=== PATIENT | male | born 1990 | race Caucasian/White ===

== ENCOUNTER 2019-08-17 19:07 | Inpatient (IN) | payer OTHER ==
[2019-08-17 21:29] VITALS: BMI 19.2
--- NOTE | 2019-08-17 22:41 | HP ---
COWS - Scale Resting Pulse: 1= [place] 81-100 Sweatin=Flushed/Facial Moisture Restless Observation: 1= Difficult to Sit Still Pupil Size: 2= Moderately Dilated (Pupils = 5 mm) Bone or Joint Aches: 2= Severe Diffuse Aches Runny Nose/ Eye Tearin= Nasal Congestion GI Upset > 30mins: 2= Nausea/Diarrhea Tremor Observation: 4= Gross Tremor/Twitching Yawning Observation: 0= None Anxiety or Irritability: 2=Irritable/Anxious Goose Flesh Skin: 0=Smooth Skin COWS Score: 17 CIWA Score Nausea/Vomitin Muscle Tremors: 4-Moderate,w/Arms Extend Anxiety: 3 Agitation: 1-Slight > Activity Paroxysmal Sweats: 3 (Increased facial moisture) Orientation: 0-Oriented Tacttile Disturbances: 0-None Auditory Disturbances: 0-None Visual Disturbances: 0-None Headache: 0-None Present CIWA-Ar Total Score: 14 - Admission Criteria OASAS Guidelines: Admission for Medically Managed Detox: Requires at least one of the followin. CIWA greater than 12 2. Seizures within the past 24 hours 3. Delirium tremens within the past 24 hours 4. Hallucinations within the past 24 hours 5. Acute intervention needed for co occurring medical disorder 6. Acute intervention needed for co occurring psychiatric disorder 7. Severe withdrawal that cannot be handled at a lower level of care (continued vomiting, continued diarrhea, abnormal vital signs) requiring intravenous medication and/or fluids 8. Patient presents the following: CIWA greater than 12 Admission Criteria Met: Admission criteria met Admission ROS [facility] Chief Complaint: Here for alcohol, Xanax, and heroin detox. Allergies/Adverse Reactions: Allergies Allergy/AdvReac Type Severity Reaction Status Date / Time No Known Allergies Allergy Verified 08/17/19 21:13 History of Present Illness: 29 yo first presentation to [facility] w/ alcohol, Xanax, and opioid use disorder. Was seen at [facility] and brought to [facility], after stabilization. Denies seizures or blackouts. Hx: Multiple OD's. Last 2 weeks ago. Alcohol use began at age 18. Currently drinks 1/2 pt vodka - every other day. Last drank 4 pm 08/16. Heroin use began at age 22. Currently using 1 bundle/day x 2 months. Off and on x 3-4 years. IVDU. Denies sharing needles or works. On Suboxone for 1 year. Last took this a.m. and it precipitated withdrawal. Went to hospital this am and was given IV fluids, Valium, and zofran and then brought here. No Narcan kit at home. Reviewed Narcan use and encouraged to accept. Patient informed he would be restarted on Suboxone and is agreement. States will f/u w/ current prescriber. Xanax use began at age 22. Currently uses 2-3 sticks/day. Last used 08/16 about 4 pm. Cocaine use began at age 22. Currently speedballs 1/2 -1 gm IV. Nicotine use began at age 15. Currently smokes 1/2 PPD. PMHx: PPD +; Hx BCG vaccination in [place]. MHHx: PTSD; Depression; (On meds). Insomnia only when going thorough detox. Last saw a MH Provider about 1.5 mths ago. Denies thoughts of harming self or others. SHx: Homeless. Unemployed. Denies legal issues. Patient Name: Deneen Morales Date: 1990 Address: [address] [place] [address] Sex: Male Rx Written Rx Dispensed Drug Quantity Days Supply Prescriber Name 08/14/2019 08/14/2019 buprenorphine-naloxone 8-2 mg sl film 21 7 Jami Jackson 08/01/2019 08/02/2019 buprenorphine-naloxone 8-2 mg sl film 36 12 BrieKodia 07/31/2019 07/31/2019 buprenorphine-naloxone 8-2 mg sl film 9 3 Sonia Landers 07/23/2019 07/23/2019 buprenorphine-naloxone 8-2 mg sl film 24 8 Lidia Lowe E 07/16/2019 07/16/2019 buprenorphine-naloxone 8-2 mg sl film 21 7 Lidia Lowe E 07/09/2019 07/09/2019 buprenorphine-naloxone 8-2 mg sl film 21 7 Lidia Lowe E 07/02/2019 07/02/2019 buprenorphine-naloxone 8-2 mg sl film 12 6 Lidia Lowe E Patient Name: Deneen Morales Date: 1990 Address: [place] [address] Sex: Male Rx Written Rx Dispensed Drug Quantity Days Supply Prescriber Name 06/21/2019 06/21/2019 buprenorphine-naloxone 8-2 mg sl film 28 14 Za Cleveland JAVA SUPPORT ENGINEER 06/14/2019 06/14/2019 buprenorphine-naloxone 8-2 mg sl film 16 8 Freddie Avitia 06/07/2019 06/07/2019 buprenorphine-naloxone 4-1 mg sl film 24 8 Freddie Avitia Patient Name: Deneen Morales Date: 1990 Address: [place] [address] Sex: Male Rx Written Rx Dispensed Drug Quantity Days Supply Prescriber Name 05/28/2019 05/28/2019 buprenorphine-naloxone 12-3 mg sl film 25 25 Larry Pollock 05/28/2019 05/28/2019 buprenorphine-naloxone 8-2 mg sl film 25 25 Larry Pollock Patient Name: Deneen Morales Date: 1990 Address: [place] [address] Sex: Male Rx Written Rx Dispensed Drug Quantity Days Supply Prescriber Name 04/23/2019 04/23/2019 buprenorphine-naloxone 8-2 mg sl film 90 30 Teofilo Huerta 03/29/2019 03/29/2019 buprenorphine-naloxone 8-2 mg sl film 90 30 Teofilo Huerta 03/20/2019 03/20/2019 buprenorphine-naloxone 8-2 mg sl film 21 7 Teofilo Huerta 02/02/2019 02/02/2019 buprenorphine-naloxone 8-2 mg sl film 90 30 Teofilo Huerta 01/16/2019 01/16/2019 buprenorphine-naloxone 4-1 mg sl film 30 30 Teofilo Huerta 01/08/2019 01/08/2019 buprenorphine-naloxone 8-2 mg sl film 60 30 Teofilo Huerta Patient Name: Deneen Morales Date: 1990 Address: [place] [address] Sex: Male Rx Written Rx Dispensed Drug Quantity Days Supply Prescriber Name 12/13/2018 12/13/2018 buprenorphine-naloxone 8-2 mg sl film 60 30 Yaya Anthony MD Patient Name: Deneen Morales Date: 1990 Address: [place] [address] Sex: Male Rx Written Rx Dispensed Drug Quantity Days Supply Prescriber Name 10/31/2018 11/02/2018 suboxone 8 mg-2 mg sl film 60 30 Anant Jordan MD 10/26/2018 10/30/2018 suboxone 8 mg-2 mg sl film 12 4 Heather Wang MD Patient Name: Deneen Morales Date: 1990 Address: [address] [id number] Sex: Male Rx Written Rx Dispensed Drug Quantity Days Supply Prescriber Name 10/12/2018 10/12/2018 buprenorphine 8 mg tablet sl 42 14 Heather Wang MD 10/06/2018 10/06/2018 buprenorphine 8 mg tablet sl 15 5 Heather Wang MD 09/22/2018 09/22/2018 buprenorphine 8 mg tablet sl 42 14 Heather Wang MD 09/08/2018 09/09/2018 buprenorphine 8 mg tablet sl 42 14 Heather Wang MD 09/01/2018 09/01/2018 buprenorphine 8 mg tablet sl 28 14 Heather Wang MD Exam Limitations: No Limitations - Ebola screening Have you traveled outside of the country in the last 21 days: No (N) Have you had contact with anyone from an Ebola affected area: No Have you been sick,other than usual withdrawal symptoms: No Do you have a fever: No - Review of Systems Constitutional: Chills, Diaphoresis, Changes in sleep (Only when detoxing), Weight Stable EENT: reports: Nose Congestion Respiratory: reports: No Symptoms reported Cardiac: reports: No Symptoms Reported GI: reports: Nausea, Vomiting (while in ED), Abdominal cramping : reports: No Symptoms Reported (Denies burnig or pain w/ urination.) Musculoskeletal: reports: Back Pain (Achy pain r/t withdrawal), Other (Achy pain all over r/t withdrawal) Integumentary: reports: No Symptoms Reported Neuro: reports: Tremors Endocrine: reports: No Symptoms Reported Hematology: reports: No Symptoms Reported Psychiatric: reports: Judgement Intact, Mood/Affect Appropiate, Orientated x3, Agitated, Anxious, Depressed (Denies thoughts of harming self or others.) Patient History - PPD History Previous Implant?: Yes Documented Results: Positive w/o proof (Hx BCG vaccination.) Implanted On Prior R Admission?: No PPD to be Administered?: No - Smoking Cessation Smoking history: Current every day smoker Have you smoked in the past 12 months: Yes Aproximately how many cigarettes per day: 10 Hx Chewing Tobacco Use: No Initiated information on smoking cessation: Yes 'Breaking Loose' booklet given: 08/17/19 - Substance & Tx. History Hx Alcohol Use: Yes Hx Substance Use: Yes Substance Use Type: Alcohol, Cocaine, Heroin, Tranquilizers (Xanax) Hx Substance Use Treatment: Yes (detox, rehab, currently on Suboxone) - Substances abused Heroin Substance route: Injection Frequency: Daily Amount used: 15 bags Age of first use: 22 Date of last use: 08/16/19 Alprazolam (Xanax) Substance route: Oral Frequency: Daily Amount used: 3 mg Age of first use: Date of last use: 08/16/19 Alcohol Substance route: Oral Frequency: 3-6 times per week Amount used: half of vodka Age of first use: Date of last use: 08/16/19 Admission Physical Exam S - Vital Signs Vital Signs: Vital Signs - 24 hr 08/17/19 21:12 Temperature 96.2 F L Pulse Rate 84 Respiratory 16 Rate Blood Pressure 110/62 - Physical General Appearance: Yes: Nourished, Moderate Distress, Thin, Tremorous, Sweating (Increased facial moisture), Anxious HEENTM: Yes: EOMI, Hearing grossly Normal, Normocephalic, Normal Voice, ARNOLD ( Pupils = 5 mm), Pharynx Normal, Nasal Congestion Respiratory: Yes: Lungs Clear (Pulse Ox = 99 %), Normal Breath Sounds, No Respiratory Distress Neck: Yes: No masses,lesions,Nodules, Supple Breast: Yes: Breast Exam Deferred Cardiology: Yes: Regular Rhythm, S1, S2, Bradycardia (HR: 58) Abdominal: Yes: Non Tender, Flat, Soft, Increased Bowel Sounds Genitourinary: Yes: Other (Urine color of orange juice.) Back: Yes: Normal Inspection Musculoskeletal: Yes: full range of Motion, Gait Steady Extremities: Yes: Normal Capillary Refill (Peripheral pulses +), Tremors (Gross) Neurological: Yes: armature winder repairer II-XII NML intact, Fully Oriented, Alert, Motor Strength 5/5, Normal Mood/Affect Integumentary: Yes: Normal Color, Warm, Diaphoresis (Increased facial moisture) , Track Shirley (Track shirley oswaldo antecubitals w/o increased warmth or erythema) Lymphatic: Yes: Within Normal Limits - Diagnostic (1) Alcohol dependence with withdrawal, uncomplicated Current Visit: Yes Status: Acute (2) Opioid dependence with withdrawal Current Visit: Yes Status: Acute Comment: IVDU (3) Opioid dependence on agonist therapy Current Visit: Yes Status: Chronic Comment: On Suboxone (4) Sedative, hypnotic or anxiolytic dependence with withdrawal, uncomplicated Current Visit: Yes Status: Acute (5) Cocaine dependence, uncomplicated Current Visit: Yes Status: Chronic (6) Nicotine dependence, unspecified, uncomplicated Current Visit: Yes Status: Chronic Qualifiers: Nicotine product type: cigarettes Qualified Code(s): F17.210 - Nicotine dependence, cigarettes, uncomplicated (7) History of positive PPD Current Visit: Yes Status: Chronic Comment: BCG vaccination while in [facility] Cleared for Admission [facility] - Detox or Rehab [facility] Level of Care: Medically Managed Detox Regimen/Protocol: Not Applicable (ATIVAN DETOX) Claeared for Rehab Admission: No Breathalyzer - Breathalyzer Breathalyzer: 0 Urine Drug Screen - Test Device Lot number: [id number] Expiration date: 04/18/21 - Control Is test valid?: Yes - Results Drug screen NEGATIVE: Yes Urine drug screen results: ALICIA-Cocaine, MOP-Opiates, BZO-Benzodiazepines, BUP- Suboxone Inpatient Rehab Admission - Rehab Decision to Admit Inpatient rehab admission?: No
[2019-08-17] MEDS ORDERED: MELATONIN 5 MG TABLETS PO PRN (23:30)
[2019-08-17] MEDS ORDERED: MENTHOL/PHENOL 1 EACH UD MM PRN (23:30)
[2019-08-17] MEDS ORDERED: MAGNESIUM CITRATE 300 ML BOTTLE PO PRN (23:30)
[2019-08-17] MEDS ORDERED: MAG HYDROX/AL HYDROX/SIMETH 30 ML UNIT-DOSE CUP PO PRN (23:30)
[2019-08-17] MEDS ORDERED: ACETAMINOPHEN 325 MG TABLET (FP) PO PRN ×2 (23:30)
[2019-08-17] MEDS ORDERED: NICOTINE POLACRILEX 2 MG GUM BUC PRN (23:30)
[2019-08-17] MEDS ORDERED: MAGNESIUM HYDROX 2400MG/30ML ORAL SUSPENSION 30 ML CUP PO PRN (23:30)
[2019-08-17] MEDS ORDERED: BISMUTH SUBSALICYLATE 524 MG/30 ML UD PO PRN (23:30)
[2019-08-17] MEDS ORDERED: PROCHLORPERAZINE MALEATE 5 MG TABLET PO PRN (23:35)
[2019-08-17] MEDS ORDERED: GABAPENTIN 100 MG CAPSULE (FP) PO ONE (23:36)
[2019-08-18] MEDS ORDERED: LORazepam 2 MG TABLET PO ONE (00:01)
[2019-08-18] MEDS ORDERED: LORazepam 1 MG TABLET PO PRN (00:01)
[2019-08-18] MEDS: BUPRENORPHINE/NALOXONE 8 MG/2 MG FILM PACKET SL SCH ×4 (00:56→21:59)
[2019-08-18] MEDS: LORazepam 2 MG TABLET PO SCH ×4 (05:03→22:00)
[2019-08-18] MEDS: PRENATAL VITAMINS W/ FOLIC ACID TABLET (FP) PO SCH (10:06)
[2019-08-18] MEDS: NICOTINE 14 MG/24 HOURS TOPICAL PATCH TD SCH (10:06)
[2019-08-18 10:49] LABS: ALBUMIN 3.6 g/dl (3.4-5.0); BILIRUBIN,TOTAL 0.1 mg/dL (0.2-1); BLOOD UREA NITROGEN 10.8 mg/dL (7-18); CALCIUM 8.7 mg/dL (8.5-10.1); CREATININE 0.7 mg/dL (0.55-1.3); POTASSIUM 3.8 mmol/L (3.5-5.1); TOT PROT 6.8 g/dl (6.4-8.2)
[2019-08-18 11:04] LABS: HEMATOCRIT 38.9 % (35.4-49); HEMOGLOBIN 13.3 GM/dL (11.7-16.9); MCH 30.3 pg (25.7-33.7); MCHC 34.1 g/dl (32.0-35.9); MEAN CELL VOLUME 88.6 fl (80-96); MEAN PLT VOLUME 10.1 fl (7.5-11.1); PLATELET COUNT 198 K/MM3 (134-434); RBC 4.39 M/mm3 (4.00-5.60); WHITE BLOOD COUNT 5.4 K/mm3 (4.0-10.0)
--- NOTE | 2019-08-18 12:00 | PN ---
S CIWA - CIWA Score Nausea/Vomitin-No Nausea/No Vomiting Muscle Tremors: None Anxiety: 3 Agitation: 0-Normal Activity Paroxysmal Sweats: 3 Orientation: 0-Oriented Tacttile Disturbances: 0-None Auditory Disturbances: 0-None Visual Disturbances: 0-None Headache: 2-Mild CIWA-Ar Total Score: 8 S COWS - Scale Resting Pulse: 0= [place] 80 or Below Sweatin= Beads of Sweat on Face Restless Observation: 1= Difficult to Sit Still Pupil Size: 0= Normal to Room Light Bone or Joint Aches: 2= Severe Diffuse Aches Runny Nose/ Eye Tearin= None GI Upset > 30mins: 0= None Tremor Observation of Outstretched Hands: 0= None Yawning Observation: 1= 1-2x During Session Anxiety or Irritability: 2=Irritable/Anxious Goose Flesh Skin: 0=Smooth Skin COWS Score: 9 S Progress Note (SOAP) Subjective: c/o muscle aches, headache, anxiety, and sweats. Objective: 08/18/19 11:59 Vital Signs 08/18/19 08/18/19 06:35 09:23 Temperature 97.3 F L 97.1 F L Pulse Rate 72 63 Respiratory 16 18 Rate Blood Pressure 117/75 107/70 Laboratory Last Values WBC 5.4 K/mm3 (4.0-10.0) 08/18/19 07:50 RBC 4.39 M/mm3 (4.00-5.60) 08/18/19 07:50 Hgb 13.3 GM/dL (11.7-16.9) 08/18/19 07:50 Hct 38.9 % (35.4-49) 08/18/19 07:50 MCV 88.6 fl (80-96) 08/18/19 07:50 MCH 30.3 pg (25.7-33.7) 08/18/19 07:50 MCHC 34.1 g/dl (32.0-35.9) 08/18/19 07:50 RDW 13.0 % (11.9-15.9) 08/18/19 07:50 Plt Count 198 K/MM3 (134-434) 08/18/19 07:50 MPV 10.1 fl (7.5-11.1) 08/18/19 07:50 Sodium 141 mmol/L (136-145) 08/18/19 07:50 Potassium 3.8 mmol/L (3.5-5.1) 08/18/19 07:50 Chloride 108 mmol/L (98-107) H 08/18/19 07:50 Carbon Dioxide 29 mmol/L (21-32) 08/18/19 07:50 Anion Gap 4 MMOL/L (8-16) L 08/18/19 07:50 BUN 10.8 mg/dL (7-18) 08/18/19 07:50 Creatinine 0.7 mg/dL (0.55-1.3) 08/18/19 07:50 Est GFR (CKD-EPI)AfAm 148.85 08/18/19 07:50 Est GFR (CKD-EPI)NonAf 128.43 08/18/19 07:50 Random Glucose 87 mg/dL (74-106) 08/18/19 07:50 Calcium 8.7 mg/dL (8.5-10.1) 08/18/19 07:50 Total Bilirubin 0.1 mg/dL (0.2-1) L 08/18/19 07:50 AST 12 U/L (15-37) L 08/18/19 07:50 ALT 29 U/L (13-61) 08/18/19 07:50 Alkaline Phosphatase 113 U/L (45-117) 08/18/19 07:50 Total Protein 6.8 g/dl (6.4-8.2) 08/18/19 07:50 Albumin 3.6 g/dl (3.4-5.0) 08/18/19 07:50 Labs noted. Assessment: 08/18/19 11:59 AOX3, in no acute respiratory distress. Full ROM, ambulating in the unit. withdrawal symptoms. Plan: continue detox.
--- NOTE | 2019-08-18 13:05 | CONSULT ---
[facility] Psychiatric Consult - Data Date of interview: 08/18/19 Admission source: [facility] Identifying data: First admission to [facility] for this 29 y/o [place]born male , self-referred for detoxification (CUONG issues : heroin, cocaine, xanax, nicotine). Interviewed at [address] [place] [address]. Patient is , a father of one, homeless (senior care), unemployed and supported on welfare. Substance Abuse History: Discussed with the patient. Details in current [facility] report as follows : Smoking history: Current every day smoker. Have you smoked in the past 12 months: Yes. Aproximately how many cigarettes per day: 10. Hx Chewing Tobacco Use: No. Initiated information on smoking cessation: Yes. ' Breaking Loose' booklet given: 08/17/19. - Substance & Tx. History. Hx Alcohol Use: Yes. Hx Substance Use: Yes. Substance Use Type: Alcohol, Cocaine , Heroin, Tranquilizers (Xanax). Hx Substance Use Treatment: Yes (detox, rehab , currently on Suboxone). - Substances abused. Heroin. Substance route: Injection. Frequency: Daily. Amount used: 15 bags. Age of first use: 22. Date of last use: 08/16/19. Alprazolam (Xanax). Substance route: Oral. Frequency: Daily. Amount used: 3 mg. Age of first use: 22. Date of last use: 08/16/19. Alcohol. Substance route: Oral. Frequency: 3-6 times per week. Amount used: half of vodka. Age of first use: 20. Date of last use: 08/16/19 Medical History: Patient endorses good general health. Psychiatric History: Patient denies history of psychiatric hospitalizations. Mr Morales indicates current psychiatric care for MDD and PTSD (diagnosed by his primary care physician). Medicated with wellbutrin XL 150 mg/daily + prozac ( dose not recalled) + gabapentin 400 mg po tid (as per pharmacist at [facility]). Patient has no affiliation with psychiatrists. Gets his refills from his PMD. On suboxone maintenance. Denies history of suicide attempts. Physical/Sexual Abuse/Trauma History: Severe traumas : experienced the [place] war as a boy in [facility], several losses in his family, addictions, homelessness , divorce, loss of child custody, unemployment and financial difficulties. Additional Comment: Urine drug screen results: ALICIA-Cocaine, MOP-Opiates, BZO- Benzodiazepines, BUP-Suboxone. Noted. Mental Status Exam - Mental Status Exam Alert and Oriented to: Time, Place, Person Cognitive Function: Good Patient Appearance: Well Groomed (small stature, frail habitus) Mood: Nervous, Withdrawn Affect: Mood Congruent, Constricted Patient Behavior: Fatigued, Appropriate, Cooperative Speech Pattern: Clear, Appropriate Voice Loudness: Normal Thought Process: Goal Oriented Thought Disorder: Not Present Hallucinations: Denies Suicidal Ideation: Denies Homicidal Ideation: Denies Insight/Judgement: Poor Sleep: Fair Appetite: Good Gait/Station: Normal Psychiatric Findings - Problem List ([place] 1, 2,3) (1) Alcohol dependence with withdrawal, uncomplicated Current Visit: Yes Status: Acute (2) Opioid dependence with withdrawal Current Visit: Yes Status: Acute Comment: IVDU (3) Sedative, hypnotic or anxiolytic dependence with withdrawal, uncomplicated Current Visit: Yes Status: Acute (4) Opioid dependence on agonist therapy Current Visit: Yes Status: Chronic Comment: On Suboxone (5) Cocaine dependence, uncomplicated Current Visit: Yes Status: Chronic (6) Nicotine dependence, unspecified, uncomplicated Current Visit: Yes Status: Chronic Qualifiers: Nicotine product type: cigarettes Qualified Code(s): F17.210 - Nicotine dependence, cigarettes, uncomplicated (7) Substance induced mood disorder Current Visit: Yes Status: Chronic (8) History of posttraumatic stress disorder (PTSD) Current Visit: Yes Status: Chronic - Initial Treatment Plan Initial Treatment Plan: Psychoeducation. Sleep hygiene. Detoxification. Tool Grinder Operator External called [facility] at [phone] : spoke to pharmacist. Findings : refills for wellbutrin XL 150 mg/day (07/06/19) + gabapentin 400 mg/tid (). No prozac on file. Medications resumed as : gabapentin 200 mg po tid + wellbutrin XL 150 mg po daily. Side effects/benefits discussed with patient. Gave verbal consent to MD. [place].
[2019-08-18] MEDS ORDERED: GABAPENTIN 300 MG CAPSULE (FP) PO SCH (14:00)
[2019-08-18] MEDS: IBUPROFEN 400 MG TABLET (FP) PO PRN (16:27)
[2019-08-18] MEDS: THIAMINE HCL 100 MG TABLET (FP) PO SCH (22:00)
[2019-08-18] MEDS: GABAPENTIN 100 MG CAPSULE (FP) PO SCH (22:00)
[2019-08-19] MEDS: LORazepam 1 MG TABLET PO SCH ×2 (05:24→10:02)
[2019-08-19] MEDS: GABAPENTIN 100 MG CAPSULE (FP) PO SCH (05:24)
[2019-08-19] MEDS: BUPRENORPHINE/NALOXONE 8 MG/2 MG FILM PACKET SL SCH ×3 (05:24→21:49)
[2019-08-19] MEDS: PRENATAL VITAMINS W/ FOLIC ACID TABLET (FP) PO SCH (10:02)
[2019-08-19] MEDS: NICOTINE 14 MG/24 HOURS TOPICAL PATCH TD SCH (10:02)
[2019-08-19] MEDS: IBUPROFEN 400 MG TABLET (FP) PO PRN (10:04)
--- NOTE | 2019-08-19 12:28 | PN ---
S CIWA - CIWA Score Nausea/Vomitin-No Nausea/No Vomiting Muscle Tremors: 2 Anxiety: 2 Agitation: 2 Paroxysmal Sweats: No Perspiration Orientation: 0-Oriented Tacttile Disturbances: 0-None Auditory Disturbances: 0-None Visual Disturbances: 0-None Headache: 0-None Present CIWA-Ar Total Score: 6 BHS Progress Note (SOAP) Subjective: 29 years old male admitted on 08/17/19 for alcohol and benzo withdrawal sx management treated with ativan detox regimen patient prefers to take welbutrin at 9 am change welbutrin schedule from 10 am to 9 am patient requests neurontin 800 mg po tid "I have bottle of neurontine with me" bottle verified 400 mg po tid discontinue neurontin 200 mg po resume medication neurontin 400 mg po tid Objective: 08/19/19 12:30 Vital Signs Temperature 96 F L 08/19/19 09:16 Pulse Rate 77 08/19/19 09:16 Respiratory Rate 18 08/19/19 09:16 Blood Pressure 122/59 L 08/19/19 09:16 O2 Sat by Pulse Oximetry (%) Laboratory Last Values WBC 5.4 K/mm3 (4.0-10.0) 08/18/19 07:50 RBC 4.39 M/mm3 (4.00-5.60) 08/18/19 07:50 Hgb 13.3 GM/dL (11.7-16.9) 08/18/19 07:50 Hct 38.9 % (35.4-49) 08/18/19 07:50 MCV 88.6 fl (80-96) 08/18/19 07:50 MCH 30.3 pg (25.7-33.7) 08/18/19 07:50 MCHC 34.1 g/dl (32.0-35.9) 08/18/19 07:50 RDW 13.0 % (11.9-15.9) 08/18/19 07:50 Plt Count 198 K/MM3 (134-434) 08/18/19 07:50 MPV 10.1 fl (7.5-11.1) 08/18/19 07:50 Sodium 141 mmol/L (136-145) 08/18/19 07:50 Potassium 3.8 mmol/L (3.5-5.1) 08/18/19 07:50 Chloride 108 mmol/L (98-107) H 08/18/19 07:50 Carbon Dioxide 29 mmol/L (21-32) 08/18/19 07:50 Anion Gap 4 MMOL/L (8-16) L 08/18/19 07:50 BUN 10.8 mg/dL (7-18) 08/18/19 07:50 Creatinine 0.7 mg/dL (0.55-1.3) 08/18/19 07:50 Est GFR (CKD-EPI)AfAm 148.85 08/18/19 07:50 Est GFR (CKD-EPI)NonAf 128.43 08/18/19 07:50 Random Glucose 87 mg/dL (74-106) 08/18/19 07:50 Calcium 8.7 mg/dL (8.5-10.1) 08/18/19 07:50 Total Bilirubin 0.1 mg/dL (0.2-1) L 08/18/19 07:50 AST 12 U/L (15-37) L 08/18/19 07:50 ALT 29 U/L (13-61) 08/18/19 07:50 Alkaline Phosphatase 113 U/L (45-117) 08/18/19 07:50 Total Protein 6.8 g/dl (6.4-8.2) 08/18/19 07:50 Albumin 3.6 g/dl (3.4-5.0) 08/18/19 07:50 lab noted Assessment: 08/19/19 12:30 alcohol and benzo withdrawal sx Plan: continue ativan detox regimen
[2019-08-19] MEDS ORDERED: diazePAM 5 MG TABLET PO SCH ×2 (13:00→13:45)
[2019-08-19] MEDS: GABAPENTIN 400 MG CAPSULE (FP) PO SCH ×2 (14:13→21:49)
[2019-08-19] MEDS: diazePAM 5 MG TABLET PO PRN ×2 (14:13→20:31)
[2019-08-19] MEDS: diazePAM 5 MG TABLET PO SCH ×2 (14:59→21:50)
[2019-08-19 16:47] LABS: PH,URINE 7.5 (5.0-8.0); URINE APPEARANCE CLEAR; URINE BILIRUBIN NEGATIVE (NEGATIVE); URINE COLOR YELLOW; URINE GLUCOSE (UA) NEGATIVE (NEGATIVE); URINE KETONE NEGATIVE (NEGATIVE); URINE LEUK ESTERASE NEGATIVE (NEGATIVE); URINE NITRITE NEGATIVE (NEGATIVE); URINE PROTEIN NEGATIVE (NEGATIVE); URINE UROBILINOGEN 0.2 mg/dL (0.2-1.0)
[2019-08-19] MEDS: THIAMINE HCL 100 MG TABLET (FP) PO SCH (21:50)
[2019-08-20] MEDS ORDERED: LORazepam 0.5 MG TABLET PO PRN
[2019-08-20] MEDS: diazePAM 5 MG TABLET PO PRN ×2 (01:39→11:57)
[2019-08-20] MEDS ORDERED: diazePAM 5 MG TABLET PO SCH (05:00)
[2019-08-20] MEDS ORDERED: LORazepam 0.5 MG TABLET PO SCH (05:00)
[2019-08-20] MEDS: GABAPENTIN 400 MG CAPSULE (FP) PO SCH ×2 (05:50→14:10)
[2019-08-20] MEDS: BUPRENORPHINE/NALOXONE 8 MG/2 MG FILM PACKET SL SCH ×2 (05:50→14:10)
[2019-08-20 09:02] VITALS: TEMP 98.1
[2019-08-20] MEDS: PRENATAL VITAMINS W/ FOLIC ACID TABLET (FP) PO SCH (10:09)
[2019-08-20] MEDS: NICOTINE 14 MG/24 HOURS TOPICAL PATCH TD SCH (11:40)
--- NOTE | 2019-08-20 12:01 | EKG ---
Test Reason : Blood Pressure : / mmHG Vent. Rate : 053 BPM Atrial Rate : 053 BPM P-R Int : 118 ms QRS Dur : 084 ms QT Int : 458 ms P-R-T Axes : 068 074 050 degrees QTc Int : 429 ms SINUS BRADYCARDIA OTHERWISE NORMAL ECG NO PREVIOUS ECGS AVAILABLE Confirmed by KEVIN RICE MD ([id number]) on 08/20/2019 12:01:18 PM Referred By: NANCY Confirmed By:KEVIN RICE MD
--- NOTE | 2019-08-20 12:26 | PN ---
[facility] CIWA - CIWA Score Nausea/Vomitin-Mild Nausea/No Vomiting Muscle Tremors: 1-None Visible, but [place] Anxiety: 2 Agitation: 2 Paroxysmal Sweats: No Perspiration Orientation: 0-Oriented Tacttile Disturbances: 1-Very Mild Itch/Numbness Auditory Disturbances: 0-None Visual Disturbances: 0-None Headache: 1-Very Mild CIWA-Ar Total Score: 8 BHS Progress Note (SOAP) Subjective: alert,irritable,anxious,interrupted sleep Objective: 08/20/19 12:25 Vital Signs Temperature 98.1 F 08/20/19 09:01 Pulse Rate 71 08/20/19 09:01 Respiratory Rate 18 08/20/19 09:01 Blood Pressure 100/64 08/20/19 09:01 O2 Sat by Pulse Oximetry (%) Assessment: 08/20/19 12:25 withdrawal symptom Plan: continue detox valium regimen,discharge in am
[2019-08-20 13:22] VITALS: BP 105/67; PULSE 79
--- NOTE | 2019-08-20 15:07 | DS ---
[facility] Detox Discharge Summary Admission Date: 08/17/19 Discharge Date: 08/20/19 - History Present History: Alcohol Dependence, Sedative Dependence Additional Comments: 29 years old male admitted on 08/17/19 for alcohol and benzo withdrawal sx management treated with valium detox regimen patient tolerated well patient is alert oriented x 3 cARDIAC S1S2 REGULAR RATE RHYTHM RESPIRATORY CLEAR LUNG BILATERALLY ON AUSCULTATION EXTREMITIES FULL RANGE OF MOTION Pertinent Past History: PATIENT IS SCHEDULED TO BE DISCHARGE ON 08/21/19 PATIENT PREFERS TO LEAVE THE DETOX TODAY AND PREFERENCE TO RETURN TO HIS SUBOXONE PROVIDER FOR SUBOXONE AND BENZO PRESCRIPTION - Physical Exam Results Vital Signs: Vital Signs Temperature 98.1 F 08/20/19 13:21 Pulse Rate 79 08/20/19 13:21 Respiratory Rate 18 08/20/19 13:21 Blood Pressure 105/67 08/20/19 13:21 O2 Sat by Pulse Oximetry (%) Pertinent Admission Physical Exam Findings: ALCOHOL AND BENZO WITHDRAWAL SX Laboratory Last Values WBC 5.4 K/mm3 (4.0-10.0) 08/18/19 07:50 RBC 4.39 M/mm3 (4.00-5.60) 08/18/19 07:50 Hgb 13.3 GM/dL (11.7-16.9) 08/18/19 07:50 Hct 38.9 % (35.4-49) 08/18/19 07:50 MCV 88.6 fl (80-96) 08/18/19 07:50 MCH 30.3 pg (25.7-33.7) 08/18/19 07:50 MCHC 34.1 g/dl (32.0-35.9) 08/18/19 07:50 RDW 13.0 % (11.9-15.9) 08/18/19 07:50 Plt Count 198 K/MM3 (134-434) 08/18/19 07:50 MPV 10.1 fl (7.5-11.1) 08/18/19 07:50 Sodium 141 mmol/L (136-145) 08/18/19 07:50 Potassium 3.8 mmol/L (3.5-5.1) 08/18/19 07:50 Chloride 108 mmol/L (98-107) H 08/18/19 07:50 Carbon Dioxide 29 mmol/L (21-32) 08/18/19 07:50 Anion Gap 4 MMOL/L (8-16) L 08/18/19 07:50 BUN 10.8 mg/dL (7-18) 08/18/19 07:50 Creatinine 0.7 mg/dL (0.55-1.3) 08/18/19 07:50 Est GFR (CKD-EPI)AfAm 148.85 08/18/19 07:50 Est GFR (CKD-EPI)NonAf 128.43 08/18/19 07:50 Random Glucose 87 mg/dL (74-106) 08/18/19 07:50 Calcium 8.7 mg/dL (8.5-10.1) 08/18/19 07:50 Total Bilirubin 0.1 mg/dL (0.2-1) L 08/18/19 07:50 AST 12 U/L (15-37) L 08/18/19 07:50 ALT 29 U/L (13-61) 08/18/19 07:50 Alkaline Phosphatase 113 U/L (45-117) 08/18/19 07:50 Total Protein 6.8 g/dl (6.4-8.2) 08/18/19 07:50 Albumin 3.6 g/dl (3.4-5.0) 08/18/19 07:50 Urine Color Yellow 08/19/19 08:54 Urine Appearance Clear 08/19/19 08:54 Urine pH 7.5 (5.0-8.0) 08/19/19 08:54 Ur Specific [place] 1.024 (1.010-1.035) 08/19/19 08:54 Urine Protein Negative (NEGATIVE) 08/19/19 08:54 Urine Glucose (UA) Negative (NEGATIVE) 08/19/19 08:54 Urine Ketones Negative (NEGATIVE) 08/19/19 08:54 Urine Blood Negative (NEGATIVE) 08/19/19 08:54 Urine Nitrite Negative (NEGATIVE) 08/19/19 08:54 Urine Bilirubin Negative (NEGATIVE) 08/19/19 08:54 Urine Urobilinogen 0.2 mg/dL (0.2-1.0) 08/19/19 08:54 Ur Leukocyte Esterase Negative (NEGATIVE) 08/19/19 08:54 LAB NOTED - Treatment Hospital Course: Detox Protocol Followed, Detoxed Safely, Responded well, Discharged Condition Good, Rehab Referral Accepted Patient has Accepted a Rehab Referral to: [facility] - Medication Discharge Medications: Ambulatory Orders Bupropion HCl [Wellbutrin Xl] 300 mg PO DAILY 08/17/19 Bupropion HCl [Bupropion Xl] 150 mg PO DAILY #30 tab.er.24h 08/20/19 Gabapentin [Neurontin -] 400 mg PO TID #90 capsule 08/20/19 - Diagnosis (1) Encounter for monitoring Suboxone maintenance therapy Current Visit: Yes Status: Chronic (2) Alcohol dependence with withdrawal, uncomplicated Current Visit: Yes Status: Acute (3) Sedative, hypnotic or anxiolytic dependence with withdrawal, uncomplicated Current Visit: Yes Status: Acute (4) History of positive PPD Current Visit: Yes Status: Resolved (5) Nicotine dependence, unspecified, uncomplicated Current Visit: Yes Status: Acute Qualifiers: Nicotine product type: cigarettes Qualified Code(s): F17.210 - Nicotine dependence, cigarettes, uncomplicated (6) Substance induced mood disorder Current Visit: Yes Status: Suspected - AMA Did Patient Leave Against Medical Advice: No CIWA Score - CIWA Score Nausea/Vomitin-No Nausea/No Vomiting Muscle Tremors: 1-None Visible, but [place] Anxiety: 1-Mildly Anxious Agitation: 1-Slight > Activity Paroxysmal Sweats: No Perspiration Orientation: 0-Oriented Tacttile Disturbances: 0-None Auditory Disturbances: 0-None Visual Disturbances: 0-None Headache: 1-Very Mild CIWA-Ar Total Score: 4
[2019-08-21] MEDS ORDERED: diazePAM 5 MG TABLET PO ONE (05:00)
[2019-08-21] MEDS ORDERED: LORazepam 0.5 MG TABLET PO ONE (05:00)
== END 2019-08-20 14:55 | disposition home or self-care (01) | DRG 773 ==
LOC: YASAS 19:07 → Y3N 23:14
PROVIDERS: ADMIT Allergy & Immunology; ATTEND Allergy & Immunology
PROC: HZ2ZZZZ Detoxification Services for Substance Abuse Treatment (ICD-10-PCS; principal; 2019-08-17)
DX: F10.230 Alcohol dependence with withdrawal, uncomplicated (principal); F11.23 Opioid dependence with withdrawal; F13.230 Sedative, hypnotic or anxiolytic dependence with withdrawal, uncomplicated; F14.20 Cocaine dependence, uncomplicated; F17.210 Nicotine dependence, cigarettes, uncomplicated; F19.24 Other psychoactive substance dependence with psychoactive substance-induced mood disorder; F32.89 Other specified depressive episodes; F43.10 Post-traumatic stress disorder, unspecified; R76.11 Nonspecific reaction to tuberculin skin test without active tuberculosis; Z51.81 Encounter for therapeutic drug level monitoring
CPT/HCPCS: 36415; 80053; 81003; 85027; 86593; 93005; 93010

== ENCOUNTER 2019-10-17 13:52 | Inpatient (IN) | payer OTHER ==
[2019-10-17 16:47] VITALS: BMI 21.9
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
[2019-10-17] MEDS ORDERED: LOPERAMIDE HCL 2 MG CAPSULE PO PRN (17:31)
[2019-10-17] MEDS ORDERED: MAG HYDROX/AL HYDROX/SIMETH 30 ML UNIT-DOSE CUP PO PRN (17:31)
[2019-10-17] MEDS ORDERED: ACETAMINOPHEN 325 MG TABLET (FP) PO PRN (17:31)
[2019-10-17] MEDS ORDERED: MENTHOL/PHENOL 1 EACH UD MM PRN (17:31)
[2019-10-17] MEDS ORDERED: P-EPHED 60MG/TRIPROLIDI 2.5MG TABLET PO PRN (17:31)
[2019-10-17] MEDS ORDERED: MAGNESIUM CITRATE 300 ML BOTTLE PO PRN (17:31)
[2019-10-17] MEDS ORDERED: MAGNESIUM HYDROX 2400MG/30ML ORAL SUSPENSION 30 ML CUP PO PRN (17:31)
[2019-10-17] MEDS ORDERED: guaiFENesin 200 MG/10 ML 10 ML UNIT-DOSE CUPS PO PRN (17:31)
[2019-10-17] MEDS ORDERED: MELATONIN 5 MG TABLETS PO PRN (22:00)
[2019-10-17] MEDS: levETIRAcetam XR 500 MG TAB PO SCH (22:09)
[2019-10-17] MEDS: THIAMINE HCL 100 MG TABLET (FP) PO SCH (22:09)
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
[2019-10-18] MEDS: BUPRENORPHINE/NALOXONE 8 MG/2 MG FILM PACKET SL SCH (10:09)
[2019-10-18] MEDS: PRENATAL VITAMINS W/ FOLIC ACID TABLET (FP) PO SCH (10:09)
[2019-10-18] MEDS: NICOTINE 7 MG/24 HOURS TOPICAL PATCH TD SCH (10:09)
[2019-10-18] MEDS: FLUoxetine HCL 20 MG CAPSULE PO SCH (11:08)
[2019-10-18] MEDS: levETIRAcetam XR 500 MG TAB PO SCH ×2 (11:09→21:12)
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
[2019-10-18 12:30] LABS: ALBUMIN 4.1 g/dl (3.4-5.0); BILIRUBIN,TOTAL 0.4 mg/dL (0.2-1); BLOOD UREA NITROGEN 14.5 mg/dL (7-18); CALCIUM 9.2 mg/dL (8.5-10.1); CREATININE 0.8 mg/dL (0.55-1.3); POTASSIUM 4.6 mmol/L (3.5-5.1); TOT PROT 7.8 g/dl (6.4-8.2)
[2019-10-18 12:34] LABS: HEMATOCRIT 40.9 % (35.4-49); MCH 30.2 pg (25.7-33.7); MCHC 34.1 g/dl (32.0-35.9); MEAN CELL VOLUME 88.5 fl (80-96); MEAN PLT VOLUME 9.8 fl (7.5-11.1); PLATELET COUNT 236 K/MM3 (134-434); RBC 4.63 M/mm3 (4.00-5.60); RDW 13.3 % (11.9-15.9); WHITE BLOOD COUNT 4.2 K/mm3 (4.0-10.0)
[2019-10-18] MEDS: GABAPENTIN 400 MG CAPSULE PO SCH ×2 (14:02→21:12)
[2019-10-18] MEDS: IBUPROFEN 400 MG TABLET (FP) PO PRN (14:03)
[2019-10-18] MEDS: THIAMINE HCL 100 MG TABLET (FP) PO SCH (21:12)
[2019-10-19] MEDS: GABAPENTIN 400 MG CAPSULE PO SCH ×3 (06:05→21:14)
[2019-10-19] MEDS: FLUoxetine HCL 20 MG CAPSULE PO SCH (10:09)
[2019-10-19] MEDS: levETIRAcetam XR 500 MG TAB PO SCH ×2 (10:09→21:15)
[2019-10-19] MEDS: PRENATAL VITAMINS W/ FOLIC ACID TABLET (FP) PO SCH (10:10)
[2019-10-19] MEDS: NICOTINE 7 MG/24 HOURS TOPICAL PATCH TD SCH (10:10)
[2019-10-19] MEDS: BUPRENORPHINE/NALOXONE 8 MG/2 MG FILM PACKET SL SCH (10:12)
[2019-10-19 18:20] LABS: PH,URINE 5.5 (5.0-8.0); URINE APPEARANCE CLEAR; URINE BILIRUBIN NEGATIVE (NEGATIVE); URINE COLOR YELLOW; URINE GLUCOSE (UA) NEGATIVE (NEGATIVE); URINE KETONE NEGATIVE (NEGATIVE); URINE LEUK ESTERASE NEGATIVE (NEGATIVE); URINE NITRITE NEGATIVE (NEGATIVE); URINE PROTEIN NEGATIVE (NEGATIVE); URINE UROBILINOGEN 0.2 mg/dL (0.2-1.0)
[2019-10-19] MEDS: THIAMINE HCL 100 MG TABLET (FP) PO SCH (21:14)
[2019-10-20] MEDS: GABAPENTIN 400 MG CAPSULE PO SCH (06:31)
[2019-10-20] MEDS: FLUoxetine HCL 20 MG CAPSULE PO SCH (09:25)
[2019-10-20] MEDS: levETIRAcetam XR 500 MG TAB PO SCH (09:25)
[2019-10-20] MEDS: PRENATAL VITAMINS W/ FOLIC ACID TABLET (FP) PO SCH (09:25)
[2019-10-20] MEDS: BUPRENORPHINE/NALOXONE 8 MG/2 MG FILM PACKET SL SCH (09:26)
[2019-10-20] MEDS: NICOTINE 7 MG/24 HOURS TOPICAL PATCH TD SCH (09:26)
[2019-10-20] MEDS: IBUPROFEN 400 MG TABLET (FP) PO PRN (09:27)
[2019-10-20 12:36] VITALS: BP 137/74; PULSE 103; TEMP 98.4
--- NOTE | 2019-10-20 12:43 | DS ---
[facility] Rehab Discharge Summary - [facility] Rehab Discharge Summary Admission Date: 10/17/19 Discharge Date: 10/20/19 - Discharge Physical Exam Vital Signs: Vital Signs Temperature 98.4 F 10/20/19 12:35 Pulse Rate 103 H 10/20/19 12:35 Respiratory Rate 18 10/20/19 12:35 Blood Pressure 137/74 10/20/19 12:35 O2 Sat by Pulse Oximetry (%) - Medication Discharge Medications: Ambulatory Orders Bupropion HCl [Wellbutrin Xl] 300 mg PO DAILY 08/17/19 Bupropion HCl [Bupropion Xl] 150 mg PO DAILY #30 tab.er.24h 08/20/19 Buprenorphine HCl/Naloxone HCl [Buprenorp-Nalox 8-2 mg Sl Film] 3 each SL DAILY 10/17/19 Fluoxetine HCl [Prozac] 40 mg PO DAILY 10/17/19 Gabapentin [Neurontin -] 800 mg PO TID 10/17/19 levETIRAcetam [Levetiracetam ER] 500 mg PO BID 10/17/19 - Discharge Instructions Diet, activity, other medical instructions: Diet: Activity: Other medical instructions: - Diagnosis (1) Opioid dependence on agonist therapy Current Visit: Yes Status: Chronic - AMA Did Patient Leave Against Medical Advice: Yes Additional Comments: pt insists on leaving today , no specific reason provided , denies complaints, states has own meds . risks of leaving AMA discussed, pt insists on leaving .
== END 2019-10-20 12:45 | disposition left against medical advice (07) | DRG 770 ==
LOC: YASAS 13:52 → Y5N 17:50
PROVIDERS: ADMIT Allergy & Immunology; ATTEND Allergy & Immunology
PROC: HZ42ZZZ Group Counseling for Substance Abuse Treatment, Cognitive-Behavioral (ICD-10-PCS; principal; 2019-10-17)
DX: F10.20 Alcohol dependence, uncomplicated (principal); F11.20 Opioid dependence, uncomplicated; F14.20 Cocaine dependence, uncomplicated; F13.20 Sedative, hypnotic or anxiolytic dependence, uncomplicated; F17.210 Nicotine dependence, cigarettes, uncomplicated; F43.10 Post-traumatic stress disorder, unspecified; F33.1 Major depressive disorder, recurrent, moderate; Z86.69 Personal history of other diseases of the nervous system and sense organs
CPT/HCPCS: 36415; 80053; 81003; 85027; 86593